=== PATIENT | male | born 1990 | race Caucasian/White ===

== ENCOUNTER 2022-07-13 16:15 | Outpatient (RCR) | payer MEDICAID, SELFPAY ==
--- NOTE | 2022-06-09 09:26 | PT.OPE ---
PT [place] [facility] PT [facility] Eval Start: 06/08/22 13:26 Freq: Status: Active Protocol: Document 06/08/22 20:00 CJT (Rec: 06/09/22 09:26 CJT [id number]) E-signed By Sachin Delcid PT Physical Therapy Outpatient Evaluation Insurance Information Recert Due Date 08/12/22 Insurance Name Molly Medical Diagnosis M23.91 - unspecified internal derangement of Right knee Treating Diagnosis M25.561 - R knee pain Referring Gaudencio Herrera PA-C Subjective Subjective Pt presents with knee pain following and injury at work on 05/23/22. Pt describes falling on a flexed knee while wearing a backpack full of tools and carrying a large ladder. Pt had immediate pain and was able to bear weight although had high level of pain. Pt has been wearing a hinged knee brace since initial consultation with Gaudencio in orthopedics. Pt has been having much less pain lately and notes that he felt good enough to go for a short jog on Monday without residual pain and swelling. Aleksandr estimates he jogged for approx 0.5 miles. Pt enjoys playing competitive softball. New season will start around mid- July. 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 Job duties involve use of ladders , carrying, crawling, kneeling . Pain Comments 06/10 Date of Last Physician Visit 05/31/22 Current Work Status It Infrastructure Architect Occupation Plumbing Preferred Name Aleksandr Precautions Therapy Limitations/Systems Review Not Limited Objective Other/Pertinent Objective R Hip ROM Flexion - 120 Abduction - 40 IR/ER - 35/21 Extension - 10 L Hip ROM Flexion - 120 Abduction - 40 IR/ER - 33/19 Extension - 10 R knee ROM - 5-0-130 L knee ROM - 5-0-130 R ankle PF/DF(kf)/DF(ke) - 50/ 8/5 L ankle PF/DF(kf)/DF(ke) - 50/ 8/5 R Hip Strength Flexion - 5/5 MMT Abduction - 5/5 MMT Adduction - 5/5 MMT IR - 5/5 MMT ER - limited due to pain in medial R knee Extension - 5/5 MMT L Hip Strength Flexion - 5/5 MMT Abduction - 5/5 MMT Adduction - 5/5 MMT IR - 5/5 MMT ER - 5/5 MMT Extension - 5/5 MMT R knee Extension - 5/5 MMT R Knee Flexion - 5/5 MMT * slight pain in medial R knee L knee Extension - 5/5 MMT L knee Flexion - 5/5 MMT R ankle DF - 5/5 MMT L ankle DF - 5/5 MMT Palpation: pt reports pain/ tenderness with palpation to Gait: minimal antalgic gait on R, pt presents without use of brace or AD today Hayley's: negative Anterior drawer: negative Posterior drawer: negative Valgus stress: negative Varus stress: negative Alisa's: positive for increased pain in medial knee on R Assessment Assessment/Impression Aleksandr is a 31 year old male who presents to our clinic with R knee pain following a fall at work. Pt describes falling on a hyper flexed knee while carrying a ladder as well as a tool bag on his back. Pt has been seen by Gaudencio in orthopedics and has had MRI as well. MRI indicates a grade II sprains of pts R proximal MCL ligament and also notes thickening of the distal fibers of the R MCL, likely from chronic sprain. Pt did inform me that his knee has been feeling good enough lately and was hesitant to attend today's session due to lack of pain. HE was able to go for a 1/2 mile jog on Monday with minimal pain and swelling during and afterward. Testing today reveals good R knee ROM, extension is still slightly limited, but WNL. Strength is excellent in his B LEs but flexion of the knee and resisted ER of the R hip causes pain at pts medial joint line. I do feel that Gaudencio's assessment of pts knee pain was quite accurate: strain/tearing of the medial retinaculum. This certainly explains the pts high level of pain in compromising positions. Today we reviewed squatting mechanics and other exercises to help strengthen his hips and provide greater stabilization to his knee. Pt should continue to avoid deep squatting as we are concerned about worsening any tearing that may have occurred in his medial meniscus on R. Because his pain is much reduced I was hesitant to give him other restrictions at this time. We discussed activity modification and how he should avoid activities/positions that cause increased pain in the knee. Use of a neoprene knee sleeve would also be beneficial for him to provide some light compression and stability while he is active. I would like to see Aleksandr again in 2-3 weeks for follow-up and progression of exercises. He is interested in participating in competitive softball that begins in mid- July so we will try to progress to plyometrics when we get closer to that timeframe as his pain and function allows. For now, he should continue to modify his activities to allow for adequate healing. We will continue to assess the integrity of the structures in his knee with each follow-up appointment. Pt to return in 2 -3 weeks for follow-up and we will schedule a second follow- up another 2-3 weeks later for reassessment and potential clearance for participation in softball. 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 Pt to report reduction in knee pain by factor of 2 with all activities so that he may work throughout the day, completing all functions of his job with manageable pain. 2. Pt will demo 5/5 MMT for all LE motions on R without reproduction of R knee pain so that he may return to exercising at his home gym with use of knee flexion/ extension machines.. LTG - To be completed in 6 weeks: 1. Pt to be I with HEP so that he may I manage progression of symptoms. 2. Pt will report ability to jog 0.5 miles without increase in knee pain or subsequent swelling so that he may continue to run for exercise. 3. Pt will demo ability to perform 2 x 10 squats of full depth with good medial/lateral control of B knees to reduce straining forces within knee joints. 4. Pt will demo ability to perform 5 consecutive squat jumps without knee valgus to reduce straining forces on medial knee structures and reduced risk for reinjury of R knee. Treatment Plan/Direct Interventions Ice/Cold/Vasopneumatic,Joint Mobilization,Manual Therapy, Neuromuscular Re-ed,Self-Care/ Home Management,Therapeutic Exercises Frequency/Duration 1 every 2-3 weeks for 6 weeks Patient Will Be Discharged From Therapy Completion of LTG(s),Skills Plateau,Independent w/HEP, Independently Progressing Evaluation Billing Untimed Code Treatment Minutes 45 PT Eval No Charge No Complexity Low Certification Information Initial Certification Date 06/08/22 Ending Certification Date 07/22/22 Provider Signature Shows Agreement With POC & Medical Necessity Physician Signature & Date Requested Please Sign/Date Here Physician Comment/Change : Physician NPI Number #
== END 2022-10-20 23:59 | disposition home or self-care (01) ==
PROVIDERS: PCP Family Medicine; Visit Provider Physician Assistant Surgical
DX: M23.91 Unspecified internal derangement of right knee (principal); Z51.89 Encounter for other specified aftercare
CPT/HCPCS: 97110; 97161

== ENCOUNTER 2022-09-15 07:08 | Outpatient (CLI) | payer MEDICAID, SELFPAY ==
--- NOTE | 2022-09-15 07:15 | MR_ITS ---
[address] [address] Phone:?[phone] Fax:?[phone] Referring Physician Information: Kate Patton [address] [facility] [address] Phone:?[phone] Fax:?[phone] Patient:Elzbieta Taylor D.O.B:?1990 Sex:?Male Phone:?[phone] [facility] MRN:?[id number] Exam Date:?09/15/2022 EXAM: MRI of the RIGHT SHOULDER, without contrast CLINICAL: Unspecified symptoms involving the right shoulder with history of prior shoulder surgery 2 years ago. Evaluate rotator cuff. COMPARISONS: Prior MRI exams including 11/18/2020. TECHNICAL: MRI sequences of the right shoulder: Axials: PD, PDFS Coronals: PD, T2FS Sagittals: PDFS, T2 SEDATION: None. CONTRAST: None. FINDINGS: Rotator cuff: Supraspinatus/Infraspinatus: Mild tendinosis of the distal supraspinatus and infraspinatus tendons similar to prior examination without significant tendon tear. No significant fatty atrophy of the muscle bellies. Teres minor: No tendinosis, tear or atrophy. Subscapularis: Mild tendinosis of the distal tendon similar to prior examination without significant tendon tear. No significant fatty atrophy of the muscle belly. Bursae: Subacromial-subdeltoid: No significant bursal fluid. Subcoracoid: No significant bursal fluid. Coracoacromial arch: Acromion morphology: Type II. No os acromiale. Acromiohumeral space: Within normal limits. Coracohumeral space: Within normal limits. Biceps tendon, long head: Postoperative changes of prior biceps tenodesis with associated surgical anchor in place superior to the bicipital groove. Only markedly attenuated tendon fibers are again seen to course to the surgical anchor similar to prior exam. Glenohumeral joint: Physiologic volume of joint fluid. Articular cartilage: No new chondral defects identified. Capsule: There is thickening of the inferior glenohumeral ligament similar to prior exam. No new capsular disruption. Labrum: There is tearing of the superior and posterior labrum with small paralabral cyst formation adjacent to the superior and posterior superior labrum similar to prior exam. No new labral tear. Bones: No suspicious marrow signal alteration, fracture or dislocation. 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 Mild soft tissue edema noted about the AC joint. IMPRESSION: 1. 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 2. Postoperative changes of prior biceps tenodesis with only markedly attenuated long head biceps tendon fibers coursing within the bicipital groove towards the tenodesis anchor similar to prior exam. 3. Tearing of the superior and posterior labrum with small paralabral cyst formation adjacent to the superior and posterior superior labrum similar to prior exam. 4. Mild rotator cuff tendinosis similar to prior examination without significant rotator cuff tendon tear. 5. Thickening of the inferior glenohumeral ligament similar to prior exam which again can be seen in patients with adhesive capsulitis, recommend close clinical correlation. JCZ Electronically signed on 09/15/2022 10:00:00 AM by Prosper Carroll D.O.
== END 2022-09-15 07:09 | disposition home or self-care (01) ==
LOC: MRI 07:08
PROVIDERS: PCP Family Medicine; Visit Provider Physician Assistant Surgical
DX: M25.511 Pain in right shoulder (principal); S43.431A Superior glenoid labrum lesion of right shoulder, initial encounter; M75.01 Adhesive capsulitis of right shoulder; Z98.890 Other specified postprocedural states
CPT/HCPCS: 73221

== ENCOUNTER 2022-11-10 09:28 | Outpatient (CLI) | payer MEDICAID, SELFPAY | END 2022-11-10 09:29 | disposition home or self-care (01) | PROVIDERS: PCP Family Medicine; Visit Provider Emergency Medicine | DX: Z01.818 Encounter for other preprocedural examination (principal) | CPT/HCPCS: 80048 ==

== ENCOUNTER 2022-11-16 06:38 | Day surgery (SDC) | payer MEDICAID, SELFPAY ==
[2022-11-16] VITALS (13 sets, daily range): BP systolic 118–164; BP diastolic 65–101; PULSE 69–105; RESP 15–20; TEMP 36.4–37; O2SAT 95–98; BMI 30.2
[2022-11-16] MEDS: SODIUM CHLORIDE 0.9 % (FLUSH) 10 ML SYRINGE IVF (07:20)
[2022-11-16] MEDS: LACTATED RINGERS 1000 ML 1,000 ML 100 ML IV (07:20)
[2022-11-16] MEDS: CEFAZOLIN 2 GM in 0.9 % SODIUM CHLORIDE Mini-bag 100 ML IVPB (07:40)
--- NOTE | 2022-11-16 08:00 | CRLHL7_ITS ---
For Patients: As a result of the Century Cures Act, medical imaging exams and procedure reports are released immediately into your electronic medical record. You may view this report before your referring provider. If you have questions, please contact your health care provider. Indication: LEFT ANKLE HARDWARE REMOVAL Technique: One fluoroscopic images left ankle. Fluoroscopic time 8.8 seconds. IMPRESSION: Fluoroscopic guidance for hardware removal about the left ankle. Dictated by Tanner Comer MD @ 11/16/2022 9:20:49 AM (Electronically Signed)
--- NOTE | 2022-11-16 08:36 | W.ANESCHARGE ---
Anesthesia Charges Start Date/Time Anesthesia Start Date: 11/16/22 Anesthesia Start Time: 07:30 Stop Date/Time Anesthesia Stop Date: 11/16/22 Anesthesia Stop Time: 09:10
--- NOTE | 2022-11-16 08:37 | P.ORPRC_ITS ---
Procedure Note Date of procedure: 11/16/22 Procedure: PREOPERATIVE DIAGNOSIS: 1. Left ankle retained deep implant, lateral malleolus plate and screws as well as syndesmotic tight rope (x2) POSTOPERATIVE DIAGNOSIS: 1. Left ankle retained deep implant, lateral malleolus plate and screws as well as syndesmotic tight rope (x2) PROCEDURE: 1. Left ankle deep implant removal including lateral malleolus plate and screws and 2 syndesmotic tight ropes SURGEON: Elton Dee MD. CRAB STEAMER: Gaudencio Lord Pac - Of note, an urgent care physician assistant was critical for this case to aid in patient positioning, tissue retraction, limb manipulation/positioning, patient safety, & closure. ANESTHESIA: General LMA EBL: Less than 2 mL IMPLANTS: Hardware removed as noted above. TOURNIQUET: 40 minutes at 300 torr COMPLICATIONS: None evident INDICATIONS: The patient is a pleasant 32-year-old male who has experienced left ankle retained deep implant that has been symptomatic for the patient causing pain and discomfort with daily recreational and occupational activities. DESCRIPTION OF PROCEDURE: Following a thorough discussion of risks, benefits, and alternatives consent was obtained and the operative extremity was marked. The patient was brought to the operating room and placed supine on the operating table. 2 g IV Ancef was administered within 1 hr incision preoperatively. Appropriate time-out was performed identifying proper patient, site, and procedure. The operative extremity was prepped and draped in the appropriate sterile fashion using ChloraPrep. The limb was exsanguinated and the tourniquet inflated. The prior lateral malleolus longitudinal scar was reincised. Sharp incision through skin and subcutaneous tissue/scar tissue allowed identification of the lateral malleolus plate and 4 screws in the plate as well as the 2 interfragmentary screws seen along the anterior distal fibula. The 2 tight rope button devices were also visualized and freed. We also made 2 small stab incisions along the distal medial ankle to access the opposite side of the tight rope buttons. These were identified, the suture released, and the buttons extracted. Thereafter, the remaining screws on the plate and the interfragmentary screws removed, the tight rope buttons were removed, and the plate was removed. All hardware was removed appropriately. Thorough irrigation normal saline was performed. Curette and rasping as well as a rongeur was utilized to debride within the screw holes, smooth off the edge of the plate to bone interface, and remove all remaining metallic debris. Thorough irrigation again performed. Closure performed in layered fashion with 3-0 V icryl and review 4-0 Monocryl or Stratafix for subcutaneous and subcuticular closure, respectively. Dressings were applied. Tourniquet deflated. Patient woken per Anesthesia and transferred to recovery room stable condition. PLAN: 1. Encourage elevation of the operative extremity. 2. Range of motion of the operative extremity/digits as tolerated. 3. Ibuprofen, acetaminophen and/or Percocet as needed for pain. 4. Follow up with PA visit in 12-16 days for wound check. 5. Weight bear as tolerated operative extremity
[2022-11-16] MEDS: BUPIVACAINE 0.5% 30 ML INJECTION (08:39)
--- NOTE | 2022-11-16 09:31 | W.ANESCHARGE ---
Anesthesia Charges Start Date/Time Anesthesia Start Date: 11/16/22 Anesthesia Start Time: 07:30 Stop Date/Time Anesthesia Stop Date: 11/16/22 Anesthesia Stop Time: 09:10
[2022-11-16] MEDS: IBUPROFEN 200 MG TABLET 400 MG PO (11:08)
== END 2022-11-16 11:30 | disposition home or self-care (01) ==
PROVIDERS: PCP Family Medicine; Visit Provider Orthopaedic Surgery Sports Medicine
PROC: (CPT 20680; principal; 2022-11-16 08:00)
DX: T84.84XA Pain due to internal orthopedic prosthetic devices, implants and grafts, initial encounter (principal)
CPT/HCPCS: 20680; 1480; 73610; 76000; A9270; J0665; J0690; J1100; J1885; J2405; J2704; J3010; J3490; J7120

== ENCOUNTER 2023-01-24 15:31 | Outpatient (RCR) | payer MEDICAID, SELFPAY | END 2023-04-25 10:14 | disposition home or self-care (01) | PROVIDERS: PCP Family Medicine; Visit Provider Physician Assistant Surgical | DX: Z48.89 Encounter for other specified surgical aftercare (principal); Z51.89 Encounter for other specified aftercare | CPT/HCPCS: 97110; 97161 ==

== ENCOUNTER 2023-08-03 19:16 | Emergency (ER) | payer MEDICAID, SELFPAY ==
[2023-08-03 19:30] VITALS: BP 156/84; PULSE 89; RESP 20; TEMP 36.7; O2SAT 99; BMI 31.7
--- NOTE | 2023-08-03 19:43 | ED.DENTAL ---
HPI - Dental/Oral General Time Seen by Provider: 19:43 Date Seen: 08/03/23 Chief complaint: Dental/Oral/Mouth Injury/Pain Stated complaint: L maxilla tooth abscess-pain/swelling Time Seen by Provider: 08/03/23 19:43 Source: patient Mode of arrival: ambulatory Limitations: no limitations History of Present Illness HPI Narrative: Brian is a very pleasant 32-year-old gentleman with history of poor dentition who comes to the emergency room for evaluation regarding swelling in his mouth. Brian states that about a month ago a tooth broke off and the upper aspect of his mouth. Yesterday he began noticing discomfort and today he had more pain so he went to [facility]. He states that it was a quick visit and that the physician there put him on clindamycin which she has taken 3 times today. However, he notes that the swelling above where the tooth broke off has increased significantly in size and he is in significant discomfort. He denies any drainage from this area. He has not had a fever but occasionally has had chills. He states he feels like his face is also swollen. He has not had a history of hard to treat infections or MRSA in the past. He has tried to use ibuprofen and Tylenol today last dose of ibuprofen was at approximately 1700 hours. No allergies. Brian attempted to see a dentist but is unable to see anyone until September 02. 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 Teeth map: 1. Related Data Home Medications Medication Instructions Recorded Confirmed No Known Home Medications 01/17/23 08/03/23 Allergies Allergy/AdvReac Type Severity Reaction Status Date / Time surgical glue Allergy Mild Uncoded 08/03/23 20:49 Review of Systems Status of ROS: Reports: 6 or more systems reviewed and unremarkable except as noted in History and below Const: Reports: chills; Denies: fever PFSH [facility] Medical History Pre-op exam ?Z01.818 - Encounter for other preprocedural examination (ICD-10) Laceration of hand ?S61.419A - Laceration without foreign body of unspecified hand, initial encounter (ICD-10) Infection due to severe acute respiratory syndrome coronavirus 2 (SARS-CoV-2) (2020) ?U07.1 - COVID-19 (ICD-10) Fracture of distal end of fibula ?S82.839A - Other fracture of upper and lower end of unspecified fibula, initial encounter for closed fracture (ICD-10) Compartment syndrome ?T79.A0XA - Compartment syndrome, unspecified, initial encounter (ICD-10) Surgical History H/O fasciotomy ?Z98.890 - Other specified postprocedural states (ICD-10) History of open reduction and internal fixation (ORIF) procedure ?Z98.890 - Other specified postprocedural states (ICD-10) S/P arthroscopy of left shoulder (12/05/18) ?Z98.890 - Other specified postprocedural states (ICD-10) S/P arthroscopy of right shoulder (07/13/20) ?Z98.890 - Other specified postprocedural states (ICD-10) Family History Father Thyroid cancer Social History Smoking Status: Never smoker Do you use any of these nicotine containing products: Vaping Products Smokeless tobacco user: other Smokeless tobacco user details: THC daily How often do you have a drink containing alcohol: never AUDIT-C Alcohol total score: 0 Non-prescribed substance use: marijuana (any form) Exam Narrative: Exam Narrative: Brian is in discomfort. He is cooperative and alert. There is perhaps a suggestion of some mild swelling on the left cheek but no erythema. No periorbital swelling. Oral cavity shows a very taut swollen gum line above tooth 12 and 13. This is exquisitely tender to the touch. Neck is supple without lymphadenopathy. No respiratory distress and heart is with regular rate and rhythm. Const: Vital Signs, click to edit/add: Vital Signs - 24 hr 08/03/23 19:30 08/03/23 20:00 08/03/23 20:50 Temperature 98.1 F 98.1 F Pulse Rate [Right Pulse Oximeter] 89 Respiratory Rate 20 Blood Pressure [Ri ght Upper Arm] 156/84 H Pulse Oximetry 99 99 Oxygen Delivery Me thod Room Air 08/03/23 21:42 08/03/23 21:52 08/03/23 21:54 Temperature 98.1 F 98.1 F 98.1 F Pulse Rate [Right Pulse Oximeter] 79 79 Respiratory Rate 20 20 Blood Pressure [Ri ght Upper Arm] 135/78 135/78 Pulse Oximetry 99 Oxygen Delivery Me thod Room Air Documenting provider has reviewed patient's vital signs: yes Course Course ED Course: This appears to be an abscess. Area of swelling shows a central area that appears almost to be ?head of the abscess. I do speak to Brian about numbing this area and opening the abscess up and he is definitely for that. We speak about the wrist which do include bleeding or injury to nerve or underlying tissue. He is in so much discomfort at this time and I would like to avoid narcotics as much as possible and thus we will use ketamine 25 mg IV at. Plan on is a dose of Zosyn 3.375 g IV as well. Patient noted to have a dysphoric reaction to the ketamine. It is my belief that it was given to quickly and thus we use Ativan 0.5 mg IV. He is agitated during this time but appropriately consoled and felt better after the Ativan. Following informed consent. Patient had bupivacaine injected in the superficial mucosal tissue. This was incredibly painful for him. He was tolerant of a 4 mm opening with a scalp full in this area. A large amount of purulent fluid was draining from this wound. Toradol 15 mg IV was given. We did allow patient to drain naturally for a bit. Improvement in the size of the abscess was noted. Gently did express more purulent fluid from this area and was able to open up the wound more with gentle traction. Reevaluation(s) Reevaluation #1: Patient sent to CT and it is noted that he has a 1.3 cm abscess. Please see official report. I did speak with dentist kel who will see patient tomorrow. However they would like us to attempt to so in a small drain. Unfortunately we do not have any drains that size. Alternatively we discussed using a sterile glove or other item to keep this opening a patent. However Brian was not tolerant any further intervention and I would not have been able to suture this in. He continues to drain at this time. Vital Signs Vital signs: Initial Vital Signs Temperature 98.1 F 08/03/23 19:30 Temperature Source Temporal Artery Scan 08/03/23 19:30 Pulse Rate 89 08/03/23 19:30 Respiratory Rate 20 08/03/23 19:30 Blood Pressure 156/84 H 08/03/23 19:30 Blood Pressure Mean 108 H 08/03/23 19:30 Blood Pressure Position Sitting 08/03/23 19:30 Pulse Oximetry 99 08/03/23 19:30 Oxygen Delivery Method Room Air 08/03/23 19:30 Vital Signs Temperature 98.1 F 08/03/23 19:30 Pulse Rate 89 08/03/23 19:30 Respiratory Rate 20 08/03/23 19:30 Blood Pressure 156/84 H 08/03/23 19:30 Pulse Oximetry 99 08/03/23 19:30 Oxygen Delivery Method Room Air 08/03/23 19:30 Temperature 98.1 F 08/03/23 21:54 Pulse Rate 79 08/03/23 21:54 Respiratory Rate 20 08/03/23 21:54 Blood Pressure 135/78 08/03/23 21:54 Pulse Oximetry 99 08/03/23 21:52 Oxygen Delivery Method Room Air 08/03/23 21:52 Medications Administered Medications: Discontinued Medications Generic Name Dose Route Start Last Admin Trade Name Freq PRN Reason Stop Dose Admin Sodium Chloride 1,000 mls @ 1,000 mls/hr 08/03/23 20:35 08/03/23 21:42 0.9 % Sodium Chloride 1000 Ml IV 08/03/23 21:34 Infused .Q1H ETHAN Infusion Piperacillin Sod/Tazobactam 100 mls @ 200 mls/hr 08/03/23 20:52 08/03/23 21:42 Sod 3.375 gm/ Sodium Chloride IVPB 08/03/23 20:53 Infused ONCE ONE Infusion Ketamine HCl 25 mg 08/03/23 20:06 08/03/23 20:10 Ketamine Hcl 100 Mg/Ml Inj IVP 08/03/23 20:07 25 mg ONCE ONE Administration Ketorolac Tromethamine 15 mg 08/03/23 20:35 08/03/23 20:50 Ketorolac 15 Mg/Ml Inj IVP 08/03/23 20:36 15 mg ONCE ONE Administration Lorazepam 0.5 mg 08/03/23 20:47 08/03/23 20:18 Lorazepam 2 Mg/Ml Inj IVP 08/03/23 20:48 0.5 mg ONCE ONE Administration MDM - Dental/Oral MDM Narrative Medical decision making narrative: 1. Dental abscess-patient did allow was to open up this abscess but was very intolerant to needles or any further intervention. He states he is feeling so much better at this time. We were able to subsequently continue to express purulent fluid. A culture was taken although I suspect this is likely a polymicrobial infection. I did offer overnight hospitalization but he is electing to go home and will call dental office tomorrow morning. He may continue to use ibuprofen or Tylenol as needed for discomfort. He did not request any narcotics and states that he is feeling much better at this time. He is instructed to continue his clindamycin. In lieu of a drain , he is given 4x4s and will gently push up this gum area to try to keep that opening patent. He will follow-up tomorrow with professional [facility]. Number for the [facility] was given to him along with the name of to dentist that he may see. 2. Disposition-home at this time. Again, states he is feeling much better. White count within normal limits. CRP elevated at 1.9. Recommend returning to ER or seeking medical attention for fever, worsening symptoms and as needed. Medical Records Attestation: I reviewed the patient's medical records. Lab Data Attestation: I reviewed the patient's lab results. Labs: Lab Results 08/03/23 Range/Units 20:08 WBC 9.40 (4.50-11.00) K/uL RBC 5.11 (4.30-5.90) m/uL Hgb 15.6 (13.5-17.5) gm/dL Hct 44.6 (37.0-53.0) % MCV 87 (80-100) fL MCH 31 (26-34) pg MCHC 35 (32-36) gm/dL RDW Coeff of Anabela 11.6 (11.5-15.5) % Plt Count 199 (140-440) K/uL Neut % (Auto) 80.6 H (42.0-72.0) % Lymph % (Auto) 11.5 L (20-44) % [place] % (Auto) 7.3 (0.0-11.0) % Eos % (Auto) 0.3 (0.0-7.0) % Baso % (Auto) 0.2 (0.0-3.0) % Neut # (Auto) 7.60 H (1.7-7.0) K/uL Lymph # (Auto) 1.10 (0.90-2.90) K/uL [place] # (Auto) 0.70 (0.00-0.90) K/UL Eos # (Auto) 0.03 (0.00-0.50) K/uL Baso # (Auto) 0.02 (0.00-0.30) K/uL Abs Immat Gran (auto) 0.01 (0.00-0.30) K/uL Imm/Tot Granulo (auto) 0.1 % Sodium 140 (135-149) mmol/L Potassium 3.9 (3.6-5.1) mmol/L Chloride 106 (96-114) mmol/L Carbon Dioxide 24 (20-32) mmol/L Anion Gap 10 (7-15) mEq/L BUN 18 (5-24) mg/dL Creatinine 1.1 (0.5-1.5) mg/dL Estimated Creat Clear 97.30 Estimated GFR 92 ml/min Glucose 99 (60-115) mg/dL Calcium 9.0 (8.4-10.6) mg/dL C-Reactive Protein 1.9 H (0.5-1.0) mg/dL Imaging Data Soft tissue neck CT: Attestation: I have reviewed the pertinent imaging results. Radiologist's impression: FINDINGS: Skull base: Unremarkable. Pharynx/Larynx/Trachea: Epiglottis is normal. Airway is patent. Left palatine tonsilliths. Adjacent soft tissues are otherwise unremarkable. Salivary glands: Unremarkable. Thyroid gland: Unremarkable. No significant nodules. Lymph nodes: No lymphadenopathy. Vessels: Unremarkable for age. Bones: Unremarkable for age. Misc: Periodontal disease with multiple dental caries and periapical lucencies. Periapical lucency of the left maxillary 2nd premolar tooth with cortical breakthrough and overlying peripherally enhancing low-density collection containing a focus of gas measuring 1.3 x 1.0 x 1.3 cm, consistent with odontogenic abscess. Overlying subcutaneous soft tissue stranding. Lung apices: Unremarkable. IMPRESSION: Periodontal disease with 1.3 cm odontogenic abscess arising from the left maxillary 2nd premolar tooth. Discharge Plan Discharge Clinical Impression: Abscess, dental Patient Disposition: Home, Self-Care Condition: Improved Additional Instructions: Called [facility] tomorrow for appointment here in [place]. I spoke with Dr. Gutierrez and Dr. Hart this evening. The phone number is [phone]. Let the law office receptionist know that I spoke with 1 of the dentists and you were to be seen on MondayAugust 03. Continue your antibiotic as directed. If you started experiencing high fever, increased swelling of the face, worsening symptoms please seek medical attention by returning to the ER or going to the closest ER. Prescriptions: No Action No Known Home Medications Follow Up/Referrals: Leon Shah MD [Primary Care Provider] - Stand Alone Forms: [employer] Info Instructions
[2023-08-03 20:00] VITALS: O2SAT 99
[2023-08-03] MEDS: KETAMINE HCL 100 MG/ML inj 25 MG IVP (20:10)
[2023-08-03] MEDS: LORazepam 2 MG/ML inj 0.5 MG IVP (20:18)
[2023-08-03 20:23] LABS: Basophils Absolute Auto 0.02 K/uL (0.00-0.30); Basophils Percent Auto 0.2 % (0.0-3.0); Eosinophils Absolute Auto 0.03 K/uL (0.00-0.50); Eosinophils Percent Auto 0.3 % (0.0-7.0); Hematocrit 44.6 % (37.0-53.0); Hemoglobin* 15.6 gm/dL (13.5-17.5); Immature Granulocytes Abs Auto 0.01 K/uL (0.00-0.30); Immature Granulocytes Pct Auto 0.1 %; Lymphocytes Percent Auto 11.5 % (20-44); Mean Corpuscular HGB Conc 35 gm/dL (32-36); Mean Corpuscular Hemoglobin 31 pg (26-34); Mean Corpuscular Volume 87 fL (80-100); Monocytes Percent Auto 7.3 % (0.0-11.0); Neutrophils Percent Auto 80.6 % (42.0-72.0); Platelet Count* 199 K/uL (140-440); RDW Coefficient of Variation % 11.6 % (11.5-15.5); Red Blood Count 5.11 m/uL (4.30-5.90); Slide Review Reflex No
[2023-08-03 20:28] LABS: Chloride* 106 mmol/L (96-114); Potassium* 3.9 mmol/L (3.6-5.1); Sodium* 140 mmol/L (135-149)
[2023-08-03 20:31] LABS: Creatinine* 1.1 mg/dL (0.5-1.5); Estimated Glomerular Filt Rate 92 ml/min
[2023-08-03 20:32] LABS: Anion Gap 10 mEq/L (7-15); Blood Urea Nitrogen* 18 mg/dL (5-24); Carbon Dioxide* 24 mmol/L (20-32); Glucose* 99 mg/dL (60-115)
[2023-08-03 20:35] LABS: C Reactive Protein* 1.9 mg/dL (0.5-1.0)
--- NOTE | 2023-08-03 20:37 | CT_ITS ---
Patient: FIOR FLORES Facility:?[facility] Patient ID:?[id number] Site Patient ID:?[id number] Site :?1990 Study:?CT-ST Neck W/ 106CC ISOVUE 370-08/03/2023 8:57:51 PM Ordering Physician:RIGOBERTO Final Report: INDICATION: Dental pain. TECHNIQUE: CT soft tissue of the neck was acquired with 106 cc Isovue 370 IV contrast. COMPARISON: None. FINDINGS: Skull base: Unremarkable. Pharynx/Larynx/Trachea: Epiglottis is normal. Airway is patent. Left palatine tonsilliths. Adjacent soft tissues are otherwise unremarkable. Salivary glands: Unremarkable. Thyroid gland: Unremarkable. No significant nodules. Lymph nodes: No lymphadenopathy. Vessels: Unremarkable for age. Bones: Unremarkable for age. Misc: Periodontal disease with multiple dental caries and periapical lucencies. Periapical lucency of the left maxillary 2nd premolar tooth with cortical breakthrough and overlying peripherally enhancing low-density collection containing a focus of gas measuring 1.3 x 1.0 x 1.3 cm, consistent with odontogenic abscess. Overlying subcutaneous soft tissue stranding. Lung apices: Unremarkable. IMPRESSION: Periodontal disease with 1.3 cm odontogenic abscess arising from the left maxillary 2nd premolar tooth. Please note that all CT scans at this facility use dose modulation, iterative reconstruction, and/or weight-based dosing when appropriate to reduce radiation dose to as low as reasonably achievable. Dictated by Bang Campbell MD @ 08/03/2023 9:11:05 PM Signed by:?Bang Campbell MD @08/03/2023 9:11:05 PM (Electronic Signature)
--- OUTSIDE RECORDS SUMMARY | 2023-08-03 20:47 | XMS_ITS | Clinical Summary ---
Author Name Unknown Organization [facility] Address [place], [place] [address] Care Team Providers Care Big Data Developer Name Role Phone [facility] Primary Care Provider [phone] Allergies No known active allergies Medications Medication Sig Dispensed Refills Start Date End Date Status oxyCODONE (ROXICODONE) 5 mg immediate release tabletIndication s:Acute bilateral thoracic back pain Take 1 Tablet (5 mg) by mouth every 4 hours if needed for Pain. 8 Tablet 12/22/2020 Active HYDROcodone-acet aminophen (5-325 mg/tablet)Indica tions:Pain, dental Take 1 Tablet by mouth every 6 hours if needed for Pain. Max acetaminophen dose: 4000 mg in 24 hrs. 6 Tablet 07/01/2023 Active HYDROcodone-acet aminophen (5-325 mg/tablet)Indica tions:Tooth ache,Dental decay Take 1 Tablet by mouth every 6 hours if needed for Pain. Max acetaminophen dose: 4000 mg in 24 hrs. 6 Tablet 08/03/2023 Active clindamycin (CLEOCIN) 300 mg capsuleIndicatio ns:Tooth ache,Dental decay Take 1 Capsule (300 mg) by mouth three times daily for 7 days. 21 Capsule 08/03/2023 08/10/2023 Active clindamycin (CLEOCIN) 150 mg capsuleIndicatio ns:Acute periapical abscess Take 3 Capsules (450 mg) by mouth three times daily for 10 days. 90 Capsule 07/01/2023 07/11/2023 Active Problems No known active problems Encounters Date Type Department Care Team Description 08/03/2023 9:14 AM CDT - 08/03/2023 9:[address] [facility] [address] [place] [address] [place] [address] Benjy Chavez MD Tooth ache (Primary Dx); Dental decay Discharge Disposition: Home Self Care 08/03/2023 Nurse Triage [facility] Centralized Nurse Triage Pcp, No Dental Problem 08/03/2023 Travel 07/01/2023 1:15 AM CDT - 07/01/2023 2:38 AM CDT Emergency [address] [place] [address] Jewel Castaneda, DO Acute periapical abscess (Primary Dx); Pain, dental Discharge Disposition: Home Self Care 07/01/2023 Travel 07/01/2023 Nurse Triage [facility] Nurse Triage Nonstaff, Doctor Derm Problem (Facial swelling); Dental Problem from Last 3 Months Immunizations Name Administration Dates Next Due Tdap 05/13/2014 Family History Medical History Relation Name Comments Cancer Father chest Good Health Mother Good Health Sister Relation Name Status Comments Father Mother Sister Social History Tobacco Use Types Packs/Day Years Used Date Smoking Tobacco: Never Smokeless Tobacco: Never Tobacco Cessation:Counseling Given: Yes Alcohol Use Standard Drinks/Week Comments Yes 0 (1 standard drink = 0.6 oz pur e alcohol) couple of beers every 3 days Social Connections Answer Date Recorded Frequency of Communication with Friends and Fami ly Not on file 04/18/2023 Sex and Gender Information Value Date Recorded Sex Assigned at Not on file Gender Identity Not on file Sexual Orientation Not on file Obstetrics History Last Filed Vital Signs Vital Sign Reading Time Taken Comments Blood Pressure 166/98 08/03/2023 9:05 AM CDT Pulse 77 08/03/2023 9:05 AM CDT Temperature 36.1 ??C (97 ??F) 08/03/2023 9:05 AM CDT Respiratory Rate 18 08/03/2023 9:05 AM CDT Oxygen Saturation 98% 08/03/2023 9:05 AM CDT Inhaled Oxygen Concentration - - Weight 97.5 kg (215 lb) 08/03/2023 9:05 AM CDT Height 175.3 cm (5' 9) 08/03/2023 9:05 AM CDT Body Mass Index 31.75 08/03/2023 9:05 AM CDT Plan of Treatment Health Maintenance Due Date Last Done Comments Depression screening for age 12+ 2003 HIV for age 15-65 08/22/2006 BMI (ht and wt on same day) for age 18+ 08/22/2009 Hepatitis C screening for ag e 18-79 08/22/2009 COVID-19 vaccine series ( season) 2022 Influenza for age 9-49 12/03/2023 Tetanus booster 05/13/2024 05/13/2014 Tdap Completed 05/13/2014 Pneumococcal series for age 6-64 Aged Out No longer eligible based on patient's age to complete this topic Care Teams Big Data Developer Relationship Specialty Start Date End Date [facility] [address] [place] [address] PCP - General 08/03/23
--- OUTSIDE RECORDS SUMMARY | 2023-08-03 20:47 | XMS_ITS | Encounter Summary ---
Author Name Unknown Organization [place] Address [facility] [place] [address] Care Team Providers Care Architect Internship Name Role Phone Patrick Downey Primary Care Provider Encounter Details Date Type Department Care Team (Late st Contact Info) Description 12/24/2020 Documentation Only INTERFACED REPORT Unknown, Provider Social History Tobacco Use Types Packs/Day Years Used Date Smoking Tobacco: Never Smokeless Tobacco: Never Alcohol Use Standard Drinks/Week Comments No 0 (1 standard drink = 0.6 oz pur e alcohol) Sex and Gender Information Value Date Recorded Sex Assigned at Not on file Gender Identity Not on file Sexual Orientation Not on file COVID-19 Exposure Response Date Recorded In the last month, have you been in contact with someone who was confirmed or suspected to have Coronavirus / COVID-19? No / Unsure 12/24/2020 12:54 PM CDT documented as of this encounter Plan of Treatment Not on file documented as of this encounter Visit Diagnoses Not on filedocumented in this encounter Additional Health Concerns Infection Onset Date Last Indicated Resolved Time COVID-19 12/22/2020 12/22/2020 01/12/2021 11:4 0 PM CDT documented as of this encounter Care Teams Architect Internship Relationship Specialty Start Date End Date Patrick Downey [address] [place] [id number] PCP - General Family Practice 01/01/14 documented as of this encounter
--- OUTSIDE RECORDS SUMMARY | 2023-08-03 20:47 | XMS_ITS | Clinical Summary ---
Author Name Unknown Organization [place] Address [facility] [place] [address] Care Team Providers Care Sterile Proc Tech Name Role Phone Patrick Downey Primary Care Provider Allergies Active Allergy Reactions Criticality Noted Date Comments Fentanyl 12/13/2016 Per pt don't give due to previous recreational use Morphine Hcl 11/04/2010 States he is not allergic to this. No Known Allergies 04/16/2003 Medications Medication Sig Dispensed Refills Start Date End Date Status naproxen (NAPROSYN) 500 MG tabletIndications:Abd ominal pain, other specified site Take 1 tablet by mouth 2 times daily (with meals). 60 tablet 0 11/04/2010 Active cyclobenzaprine (FLEXERIL) 10 MG tabletIndications:Abd ominal pain, other specified site Take 1 tablet by mouth 3 times daily as needed for muscle spasms. 30 tablet 0 11/04/2010 Active ValACYclovir (VALTREX) 1 GM tabletIndications:Abd ominal pain, other specified site Take 1 tablet by mouth 3 times daily. 21 tablet 0 11/05/2010 Active HYDROcodone-acetamino phen 5-325 MG per tablet Take 1-2 tablets by mouth every 4 hours as needed for pain. 15 tablet 0 08/02/2011 Active ibuprofen (ADVIL,MOTRIN) 800 MG tablet Take 1 tablet by mouth every 8 hours as needed for pain for 15 doses. 15 tablet 0 08/02/2011 Active pantoprazole (PROTONIX) 40 MG EC tablet Take 1 tablet (40 mg) by mouth daily 14 tablet 12/24/2020 Active ondansetron (ZOFRAN ODT) 4 MG ODT tab Take 1 tablet (4 mg) by mouth every 8 hours as needed for nausea 10 tablet 12/24/2020 Active lidocaine (LIDODERM) 5 % patch Place 1 patch onto the skin every 24 hours 10 patch 12/24/2020 Active cyclobenzaprine (FLEXERIL) 10 MG tablet Take 1 tablet (10 mg) by mouth 3 times daily as needed for muscle spasms 20 tablet 12/24/2020 Active tiZANidine (ZANAFLEX) 2 MG tablet Take 1 tablet (2 mg) by mouth 3 times daily 20 tablet 11/01/2022 Active oxyCODONE (ROXICODONE) 5 MG tablet Take 1 tablet (5 mg) by mouth every 6 hours as needed for severe pain 6 tablet 11/01/2022 Active Immunizations Name Administration Dates Next Due HepB 10/27/2004,08/01/2002,11/22/2001 MMR 10/23/2003 TD,PF 7+ (Tenivac) 10/23/2003 Family History Medical History Relation Comments Heart Disease Maternal Grandfather [place] Cancer Mother cervical cancer age 30 Diabetes Paternal Grandmother Relation Status Comments Father Alive Maternal Grandfather Alive Maternal Grandmother Alive Mother Alive Paternal Grandfather Alive Paternal Grandmother Alive Sister Alive 1 and 3 half sis ters Social History Tobacco Use Types Packs/Day Years Used Date Smoking Tobacco: Never Smokeless Tobacco: Never Alcohol Use Standard Drinks/Week Comments No 0 (1 standard drink = 0.6 oz pur e alcohol) Adolescent Education Answer Date Record ed Getting School Help Needed Not on file 01/17 Sex and Gender Information Value Date Recorded Sex Assigned at Not on file Gender Identity Not on file Sexual Orientation Not on file Last Filed Vital Signs Vital Sign Reading Time Taken Comments Blood Pressure 138/87 11/01/2022 10:46 AM CDT Pulse 77 11/01/2022 10:46 AM CDT Temperature 36.7 ??C (98.1 ??F) 11/01/2022 10:46 AM C DT Respiratory Rate 18 11/01/2022 10:46 AM CDT Oxygen Saturation 97% 11/01/2022 2:08 PM CDT Inhaled Oxygen Concentration - - Weight 72.6 kg (160 lb) 08/02/2011 9:12 PM CDT Height 175.3 cm (5' 9) 08/02/2011 9:12 PM CDT Body Mass Index 23.63 08/02/2011 9:12 PM CDT Plan of Treatment Health Maintenance Due Date Last Done Comments ADVANCE CARE PLANNING 1990 ANNUAL REVIEW OF HM ORDERS 1990 YEARLY PREVENTIVE VISIT 10/27/2005 10/27/2004, 10/22 HIV SCREENING 08/22/2006 HEPATITIS C SCREENING 08/22/2009 COVID-19 Vaccine ( season) 2022 PHQ-2 (once per calendar year) 2023 INFLUENZA VACCINE (Season Ended) 2023 02/17/2014 DTAP/TDAP/TD IMMUNIZATION (4 - Td or Tdap) 07/25/2029 07/26/2019, 05/13/2014, 10/23/2003, Additional history exists HEPATITIS B IMMUNIZATION Completed 005, 10/27/2004, 08/01/2002, Additional history exists HPV IMMUNIZATION Aged Out No longer e ligible based on patient's age to complete this topic IPV IMMUNIZATION Aged Out No longer e ligible based on patient's age to complete this topic MENINGITIS IMMUNIZATION Aged Out No l onger eligible based on patient's age to complete this topic Pneumococcal Vaccine: Pediatrics (0 to 5 Years) and At-Risk Patients (6 to 64 Years) Aged Out No longer eligible based on patient's age to complete this topic RSV MONOCLONAL ANTIBODY Aged Out No l onger eligible based on patient's age to complete this topic Advance Directives For more information, please contact: [phone] * No Code Status (Latest Code Status on File) Date Activated Date Inactivated Comments 01/27/2003 2:40 PM 01/27/2003 3:40 PM Care Teams Sterile Proc Tech Relationship Specialty Start Date End Date Patrick Downey [address] [place] [id number] PCP - General Family Practice 01/01/14
--- OUTSIDE RECORDS SUMMARY | 2023-08-03 20:47 | XMS_ITS | Referral Summary ---
Author Name Unknown Organization [place] Address [facility] [place] [address] Care Team Providers Care Tick Sewer Name Role Phone Patrick Downey Primary Care [...] 10/27/2004,08/01/2002,11/22/2001 MMR 10/23/2003 TD,PF 7+ (Tenivac) 10/23/2003 Social History Tobacco Use Types Packs/Day Years [...] 08/02/2011 9:12 PM CDT Plan of Treatment Not on file Advance Directives For more information, please contact: [phone] * No Code Status (Latest Code Status on File) Date Activated Date Inactivated Comments 01/27/2003 2:40 PM 01/27/2003 3:40 PM Care Teams Tick Sewer Relationship Specialty Start Date End Date Patrick Downey [address] [place] [id number] PCP - General Family Practice 01/01/14
[2023-08-03 20:50] VITALS: TEMP 36.7
[2023-08-03] MEDS: KETOROLAC 15 MG/ML inj IVP (20:50)
[2023-08-03] MEDS: 0.9 % SODIUM CHLORIDE 1000 ml 1,000 ML IV (20:50)
[2023-08-03] MEDS: PIPERACILLIN/TAZOBACTAM 3.375 GM in 0.9 % SODIUM CHLORIDE Mini-bag 100 ML IVPB (21:08)
[2023-08-03 21:42] VITALS: TEMP 36.7
[2023-08-03 21:52] VITALS: BP 135/78; PULSE 79; RESP 20; TEMP 36.7; O2SAT 99
[2023-08-03 21:54] VITALS: BP 135/78; PULSE 79; RESP 20; TEMP 36.7
== END 2023-08-03 21:54 | disposition home or self-care (01) ==
PROVIDERS: Emergency Provider Family Medicine; PCP Family Medicine
DX: K04.7 Periapical abscess without sinus (principal)
CPT/HCPCS: 36415; 70491; 80048; 85025; 86140; 87070; 87077; 94761; 96365; 96375; 99284; 99285; J1885; J2060; J2543; J3490; J7030; Q9967